=== PATIENT | female | born 1930 | race Caucasian/White ===

== ENCOUNTER 2016-04-09 07:26 | Emergency (ER) | payer MEDICARE, OTHER ==
[~2016-04-09] VITALS: Ht 147.3 cm; Wt 64.4 kg
[~2016-04-09 07:26] MED LIST: ALBUTEROL4 M1 PO; CARAFATE1 GM PO; CHLORTHALIDONE25 M1 PO; CLEOCIN HCL300 MG PO; COREG3.125 MG PO; EVISTA60 MG PO; GLUCOPHAGE500 MG PO; LEVAQUIN 5500 MG/101 IV; LEVAQUIN500 MG PO; LEVAQUIN750 MG PO; LEXAPRO10 MG PO; OMEPRAZOLE20 M3 PO; PHENERGAN/CODEIN5 ML PO
[2016-04-09 07:32] VITALS: BP 121/51
[2016-04-09] MEDS ORDERED: NEXIUM40 MG PO (07:38)
--- NOTE | 2016-04-09 10:17 | NUR ---
PATIENT TAKEN TO BED 07 VIA WHEELCHAIR.
--- NOTE | 2016-04-09 10:21 | NUR ---
DR. HERNANDEZ WORLEYAL PATIENT AT BEDSIDE.
[2016-04-09] MEDS ORDERED: IPRATROPIUM 0.02% 0.5 MG/2.5 ML NEBU INH ONE (10:30)
[2016-04-09] MEDS ORDERED: ALBUTEROL 0.083% 2.5 MG/3 ML NEBU INH ONE (10:30)
--- NOTE | 2016-04-09 10:40 | NUR ---
RT AT BEDSIDE FOR BREATHING TREATMENT
--- NOTE | 2016-04-09 10:47 | NUR ---
XRAY AT BEDSIDE.
[2016-04-09] MEDS ORDERED: POTASSIUM CHLORIDE 10 MEQ TABER PO ONE (11:15)
[2016-04-09 11:54] VITALS: BP 127/60
--- NOTE | 2016-04-09 11:55 | NUR ---
Patient discharged with v/s stable. Written and verbal after care instructions given and explained. Patient alert, oriented and verbalized understanding of instructions. Ambulatory with [facility]. All questions addressed prior to discharge. ID band removed. Patient advised to follow up with PMD. Rx of AZITHROMYCIN, GUAIATUSSIN AND K-SHEELA given. Patient educated on indication of medication including possible reaction and side effects. Opportunity to ask questions provided and answered.
== END 2016-04-09 11:55 | disposition home or self-care (01) ==
LOC: MED 07:26
PROC: 3E0F7GC Introduction of Other Therapeutic Substance into Respiratory Tract, Via Natural or Artificial Opening (ICD-10-PCS; principal; 2016-04-09)
PROC: 4A02X4Z Measurement of Cardiac Electrical Activity, External Approach (ICD-10-PCS; principal; 2016-04-09)
DX: J20.9 Acute bronchitis, unspecified (principal); E87.6 Hypokalemia; E11.9 Type 2 diabetes mellitus without complications; I10 Essential (primary) hypertension; K21.9 Gastro-esophageal reflux disease without esophagitis
CPT/HCPCS: 36415; 71010; 80053; 83880; 84484; 85025; 93005; 94640; 99285; J7613; J7644